=== PATIENT | female | born 1975 | race Caucasian/White ===

== ENCOUNTER 2016-08-28 09:20 | Outpatient (CLI) | payer OTHER ==
[~2016-08-28] VITALS: Ht 172.7 cm; Wt 75.0 kg
[~2016-08-28 09:20] MED LIST: ALPR0.5T7 PO; AMOX500C2 PO; CYCL10TA9 PO; FLUO20CA25 PO; HYDR1TAB PO; HYDR1TAB66 PO; LEVO175T2 PO; LVT.025T PO; METO-270 PO; METR500T PO; NAPR-243 PO; NAPR220C11 PO; PROP20TA5; SULF1TAB38 PO; TEMA30CA PO
[2016-08-28] MEDS ORDERED: METO-270 PO (09:40)
[2016-08-28] MEDS ORDERED: TRAM50TA2 PO (09:44)
[2016-08-28] MEDS ORDERED: CYAN250014 PO (09:44)
[2016-08-28] MEDS ORDERED: CRAN500C5 PO (09:44)
[2016-08-28] MEDS ORDERED: CHOL2000 PO (09:44)
[2016-08-28] MEDS ORDERED: OMEP40CA36 PO (09:44)
[2016-08-28] MEDS ORDERED: ASCO100083 PO (09:44)
[2016-08-28] MEDS ORDERED: RANI150T15 PO (09:44)
[2016-08-28 09:49] VITALS: BP 111/75
[2016-08-28 10:21] LABS: BASOPHILS # (AUTO) 0.1 10^3/uL (0.0-0.1); BASOPHILS % (AUTO) 1 % (0-10); EOSINOPHILS # (AUTO) 0.1 10^3/uL (0.0-0.3); EOSINOPHILS % (AUTO) 1 % (0-10); LYMPHOCYTES # (AUTO) 2.2 X 10^3 (1.0-4.0); LYMPHOCYTES % (AUTO) 23 % (12-44); MEAN CORPUSCULAR HEMOGLOBIN 33 PG (25-34); MEAN CORPUSCULAR HGB CONC 33 G/DL (32-36); MEAN CORPUSCULAR VOLUME 98 FL (80-99); MEAN PLATELET VOLUME 11.3 FL (7.4-10.4); MONOCYTES # (AUTO) 0.7 X 10^3 (0.0-1.0); MONOCYTES % (AUTO) 7 % (0-12); NEUTROPHILS # (AUTO) 6.5 X 10^3 (1.8-7.8); NEUTROPHILS % (AUTO) 68 % (42-75); PLATELET COUNT 282 10^3/uL (130-400); RED BLOOD COUNT 4.39 10^6/uL (4.35-5.85); RED CELL DISTRIBUTION WIDTH 11.6 % (10.0-14.5); WHITE BLOOD COUNT 9.5 10^3/uL (4.3-11.0)
== END 2016-08-28 13:09 | disposition home or self-care (01) ==
LOC: PREOP 09:20
PROVIDERS: ATTEND Obstetrics & Gynecology
DX: Z01.812 Encounter for preprocedural laboratory examination (principal); Z11.2 Encounter for screening for other bacterial diseases; R10.2 Pelvic and perineal pain; N93.8 Other specified abnormal uterine and vaginal bleeding; R19.09 Other intra-abdominal and pelvic swelling, mass and lump; N80.0 Endometriosis of uterus; D64.9 Anemia, unspecified
CPT/HCPCS: 36415; 85025; 86850; 86900; 86901; 87081

== ENCOUNTER 2016-08-31 10:51 | Day surgery (SDC) | payer OTHER ==
[~2016-08-31] VITALS: Ht 172.7 cm; Wt 75.0 kg
[~2016-08-31 10:51] MED LIST changes: +ASCO100083 PO; +CHOL2000 PO; +CRAN500C5 PO; +CYAN250014 PO; +OMEP40CA36 PO; +RANI150T15 PO; +TRAM50TA2 PO
[2016-08-31] MEDS ORDERED: ceFAZolin 1,000 MG (ANCEF) VIAL ONE (11:34)
[2016-08-31] MEDS ORDERED: NS (IVPB) 50 ML ONE (11:35)
[2016-08-31] MEDS ORDERED: LACTATED RINGERS 1,000 ML IV PRN (11:51)
[2016-08-31] MEDS ORDERED: FAMOTIDINE 20MG/2ML IV (PEPCID) IV ONE (12:00)
[2016-08-31] MEDS ORDERED: ceFAZolin 1 GM/NS 50 ML IVPB IV ONE ×2 (12:00)
[2016-08-31] MEDS ORDERED: BUP/EPI 0.25% 1:200,000 (MARCAINE) 30 ML VIAL ONE (13:33)
--- NOTE | 2016-08-31 13:48 | Progress Note-Pre Operative ---
Pre-Operative Progress Note H&P Reviewed The H&P was reviewed, patient examined and no changes noted. Date Seen by Provider: Aug 31, 2016 Time Seen by Provider: 13:48 Date H&P Reviewed: Aug 31, 2016 Time H&P Reviewed: 13:48 Pre-Operative Diagnosis: cchronic pelvic pain/dysfunctional uterine bleeding/ menorrhagia/endometrios HEENA RINCON MD Aug 31, 2016 1:48 pm
--- NOTE | 2016-08-31 13:50 | Progress Note-Post Operative ---
Post-Operative Progess Note Surgeon (s)/High School Chemistry Teacher (s) Date Seen by Provider: Aug 31, 2016 Time Seen by Provider: 15:14 Surgeon HEENA RINCON MD [employer] Chemistry Teacher: RN Pre-Operative Diagnosis cchronic pelvic pain/dysfunctional uterine bleeding/menorrhagia/endometrios Post-Operative Diagnosis same as preop with pathology pending Procedure & Operative Findings Date of Procedure 08/31/16 Procedure Performed/Findings consistent with preop diagnosis with recurrent endometriosis Anesthesia Type Gen. Estimated Blood Loss Estimated blood loss (mL): less than 50 cc Specimens/Packing Specimens Removed uterus fallopian tubes right ovary Packing: none HEENA RINCON MD Aug 31, 2016 1:50 pm
[2016-08-31] MEDS ORDERED: D5 LR IV SOLUTION 1,000 ML IV SCH (13:51)
[2016-08-31] MEDS ORDERED: MIDAZOLAM 2 MG/2 ML (VERSED) VIAL ONE (13:53)
[2016-08-31] MEDS ORDERED: fentaNYL INJECTION 100 MCG/2 ML AMP ONE (13:53)
[2016-08-31] MEDS ORDERED: WATER (STERILE) FOR INJ 10 ML BTL INJ ONE (14:00)
[2016-08-31] MEDS ORDERED: HYDROcodone/APAP 10 MG/325 MG (LORTAB) TAB PO PRN (14:00)
[2016-08-31] MEDS ORDERED: PROMETHAZINE INJ 25 MG/ML (PHENERGAN) AMP IM PRN (14:00)
[2016-08-31] MEDS ORDERED: PATIENT MAY USE OWN MEDS, ALL MC SCH (14:00)
[2016-08-31] MEDS ORDERED: MEPERIDINE (DEMEROL) INJ 100 MG/ML IM PRN (14:00)
[2016-08-31] MEDS ORDERED: ESTROGENS CONJ IV 25 MG/5 ML (PREMARIN) VIAL IVP ONE (14:00)
[2016-08-31] MEDS ORDERED: LIDOCAINE PF 2% 5 ML (XYLOCAINE) VIAL ONE (15:00)
[2016-08-31] MEDS ORDERED: proPOfol 200 MG/20 ML (DIPRIVAN) VIAL IV ONE (15:00)
[2016-08-31] MEDS ORDERED: GLYCOPYRROLATE 0.2 MG/ML (ROBINUL) 2 ML VIAL ONE (15:00)
[2016-08-31] MEDS ORDERED: NEOSTIGMINE (BLOXIVERZ ) 1 MG/1ML 10 ML VIAL ONE (15:00)
[2016-08-31] MEDS ORDERED: DEXAMETHASONE PF 10 MG/ML (DECADRON) VIAL ONE (15:00)
[2016-08-31] MEDS ORDERED: ONDANSETRON 4 MG/2 ML (SDV) Z0FRAN ONE ×2 (15:00→16:35)
[2016-08-31] MEDS ORDERED: KETOROLAC 30 MG/ML VIAL ONE (15:00)
[2016-08-31] MEDS ORDERED: LACTATED RINGERS 2,000 ML IV ONE (15:00)
[2016-08-31] MEDS ORDERED: ROCURONIUM 50 MG/5 ML (ZEMURON) VIAL IV ONE (15:01)
[2016-08-31] MEDS ORDERED: SEVOFLURANE (ULTANE) 15 ML INHAL SOLN ONE ×4 (15:01)
[2016-08-31] MEDS: morphine INJ 10 MG/ML 1ML (SYR OR VIAL) IVP PRN ×2 (15:28→15:33)
[2016-08-31] MEDS ORDERED: KETOROLAC 30 MG/ML VIAL IVP ONE (15:30)
[2016-08-31] MEDS ORDERED: ONDANSETRON 4 MG/2 ML (SDV) Z0FRAN IVP PRN (15:30)
[2016-08-31] MEDS: fentaNYL INJECTION 100 MCG/2 ML AMP IVP PRN ×2 (15:46→15:50)
[2016-08-31 16:30] VITALS: BP 109/69
[2016-08-31] MEDS: ONDANSETRON 4 MG/2 ML (SDV) Z0FRAN IVP PRN ×2 (16:45→22:06)
[2016-08-31 17:15] VITALS: BP 102/70
[2016-08-31] MEDS ORDERED: LEVO150T6 PO (18:56)
--- NOTE | 2016-08-31 19:51 | OPERATIVE REPORT ---
DATE OF SERVICE: 08/31/2016 SURGEON: Jose Lemon MD PREOPERATIVE DIAGNOSES: Chronic pelvic pain, dysfunctional uterine bleeding, menorrhagia and a history of endometriosis. POSTOPERATIVE DIAGNOSES: Chronic pelvic pain, dysfunctional uterine bleeding, menorrhagia and a history of endometriosis with recurrent endometriosis. OPERATIVE PROCEDURES: Total laparoscopic hysterectomy with bilateral salpingectomy with right oophorectomy. OPERATIVE DESCRIPTION: With the patient in the supine position under satisfactory general anesthesia, she was repositioned in the dorsolithotomy position in the Alex strips and prepped and draped in usual fashion for abdominal and vaginal surgery. A Dawn catheter was placed in the urinary bladder and left to dependent drainage. TopofForm A weighted speculum was placed in the posterior fornix of the vagina. The cervix was exposed and grasped anteriorly with a single-tooth tenaculum. The uterus was sounded to 11 cm with the uterine sound. The cervix was then serially dilated with Rachid dilators to accommodate a RICARDO II manipulator, which was placed using a 30 mm colpotomy ring and an 8 cm x 6 mm uterine probe. Sutures of #1 Vicryl were placed at 3 and 9 o'clock positions of the cervix to affix it to the manipulator. The patient was brought in the low dorsolithotomy position, and the abdomen exposed. A 12 mm incision was made approximately 4 cm superior to the umbilicus. Eight mm incisions were made 9 cm lateral to the umbilicus. All 3 incision sites were infiltrated with 0.25% Marcaine with epinephrine prior to incision. A Veress needle was placed through the supraumbilical incision. Correct placement was confirmed with a water drop test. The abdomen was insufflated with 2.4 liters of carbon dioxide. The Veress needle was removed, and a 12 mm port placed. The laparoscope was introduced and, under direct vision with transillumination of the abdominal wall, 8 mm ports were placed in the lateral incisions. The patient was placed in Trendelenburg, allowing the bowel to spill up out of the pelvis. The instrument manipulator was positioned and using a vessel sealer on the right and a bipolar fenestrated grasper on the left, the pelvis was first examined. Both fallopian tubes were interrupted, consistent with remote tubal sterilization. There were endometriosis implants in both ovarian fossae and on the right ovary. The right fallopian tube was quite torturous and somewhat fibrotic. The left ovary showed evidence of recent ovulation, but otherwise normal. The uterus was mottled in appearance, consistent with adenomyosis. There were some adhesions of the anterior lower uterine segment to the peritoneum over the bladder dome. The laparoscope was rotated. The appendix was seen. It was well above the pelvic brim on the right and appeared normal. It was left in situ. Attention was turned to the right salpingo-oophorectomy in conjunction with hysterectomy with plans also for a left salpingectomy. The right fallopian tube was grasped and elevated. The ureter was seen to peristalt medial and posterior to the IP ligament. The IP ligament was clamped, cauterized and divided with the vessel sealer. That was continued step-aldana across the mesovarium across the round ligament, across the broad ligament and down onto the cardinal ligament, allowing for removal of the tube and ovary with the uterus on the right. On the left, the mesosalpinx was clamped, cauterized and divided over to the utero-ovarian pedicle, which was then clamped, cauterized and divided including the round ligament, the broad ligaments and eventually the cardinal ligament, allowing for removal of the left fallopian tube and salvage of the left ovary. The anterior lower uterine segment of the peritoneum was now divided above the scar tissue from the patient's previous C-sections. The bladder was carefully dissected down off of the lower uterine segment, exposing the vaginal wall. Over the colpotomy ring, a colpotomy incision was made at the 12 o'clock position and continued circumferentially until the colpotomy was exposed, allowing the uterus with both fallopian tubes and the right ovary still attached to be extracted through the vagina. The vaginal cuff was then closed using 2 sutures of V-Loc clau sutures starting first on the right angle and continuing just past the midportion of the vaginal cuff and bringing the peritoneum back down over with those sutures as well. The suture on the left was started on the round ligament where it exited the abdominal wall, and then the ovary on the left was secured to the stump of the round ligament with that suture. That suture was continued across the broad ligaments to the left cardinal ligament pedicle and continued to the angle of the vaginal cuff, ensuring inclusion of the uterine vessels. With that placement of those sutures, the vaginal cuff was then closed in its entirety with the balance of the suture, and the peritoneum was brought back down onto the vaginal cuff at the same time. The pelvis was examined for hemostasis, which was complete. There were some endometriosis implants that had been touched with electrocautery prior to closing the vaginal cuff. These were in both ovarian fossae, in the cul-de-sac and on the posterior lower uterine segment peritoneum that was retained. With no further pathology and no bleeding, the procedure was terminated. The operative instruments were removed under direct vision. No bleeding was noted. The abdomen was evacuated of insufflating gas. The patient was brought out of Trendelenburg. The skin incisions were closed with pat. The fascia at the supraumbilical incision was first closed with a figure-of- eight suture of 2-0 Vicryl. Sponge and needle counts were correct. Estimated blood loss was less than 50 mL. The patient tolerated the procedure well, was uneventfully awakened from general anesthesia and transferred to the recovery room in stable condition. Job ID: [id number] DocumentID: [id number] Dictated Date: 08/31/2016 15:10:13 Warehouse Delivery Driver Date: 08/31/2016 19:51:17 Dictated By: JOSE LEMON MD [facility]
[2016-08-31] MEDS ORDERED: CYCLOBENZAPRINE 10 MG (FLEXERIL) TAB PO SCH (21:00)
[2016-08-31] MEDS: KETOROLAC 30 MG/ML VIAL IVP SCH (21:21)
[2016-08-31 21:25] VITALS: BP 113/71
[2016-09-01 01:20] VITALS: BP 88/52
[2016-09-01] MEDS: KETOROLAC 30 MG/ML VIAL IVP SCH ×3 (04:14→08:39)
[2016-09-01] MEDS: ONDANSETRON 4 MG/2 ML (SDV) Z0FRAN IVP PRN (05:04)
[2016-09-01 05:10] VITALS: BP 102/61
[2016-09-01] MEDS ORDERED: LEVOTHYROXINE 150 MCG (LEVOTHROID) TAB PO SCH (06:30)
[2016-09-01] MEDS ORDERED: PANTOPRAZOLE 40 MG (PROTONIX) TAB PO SCH (07:00)
--- NOTE | 2016-09-01 07:32 | Progress Note-Standard ---
Standard Progress Note Progress Notes/Assess & Plan Date Seen by Provider: Sep 01, 2016 Time Seen by Provider: 07:30 Progress/Assessment & Plan this patient without complaint. She is ambulating, voiding, tolerating fairly well, has good pain control, denies chest pain, denies shortness breath, denies nausea vomiting, denies headache, and is requesting discharge home Vital Signs Date Time Temp Pulse Resp B/P (MAP) Pulse Ox O2 Delivery O2 Flow Rate FiO2 09/01/16 05:10 97.5 74 18 102/61 95 09/01/16 01:20 96.9 86 18 88/52 94 08/31/16 21:25 95.9 84 18 113/71 99 08/31/16 17:15 97.2 83 18 102/70 96 08/31/16 16:30 97.0 79 20 109/69 96 I & O 09/01/16 07:00 Intake Total 3250 ml Output Total 2063 ml Balance 1187 ml vital signs are stable. Patient is afebrile. Abdomen is benign. Bowel sounds present in all 4 quadrants. Extremities show no clubbing cyanosis. There is no Homans sign. Pelvic exam is deferred Assessment and plan postoperative day number 1 status post total laparoscopic hysterectomy with bilateral salpingectomy and right oophorectomy. Patient is doing well will be discharged home with follow-up in clinic Final Diagnosis DUB/chronic pelvic pain/menorrhagia/endometriosis HEENA RINCON MD Sep 01, 2016 7:32 am
[2016-09-01] MEDS ORDERED: DOCU100C37 PO (07:33)
[2016-09-01] MEDS ORDERED: IBUP-1780 PO (07:33)
[2016-09-01] MEDS ORDERED: HYDR-3820 PO (07:33)
--- NOTE | 2016-09-01 07:36 | Discharge Instructions ---
Discharge Instructions Discharge Medications New, Converted or Re-Newed RX: RX on Chart Patient Instructions Patient Instructions: as directed Return to The Hospital For: as directed Activity & Diet Discharge Diet: No Restrictions Activity as Tolerated: No Orders-Post D/C & Referrals Follow Up Appt: return to clinic on Saturday, September 05, 2016 for staple removal Call to make follow up appt. for patient in 4 weeks. Activity: Rest for 24 hours, than as tolerated. Wound Care: May remove Band-Aid tomorrow. Replace as desired. Keep incisions clean and dry. Wash daily with soap and water. Diet: As tolerated-Clear Liquids only if nauseated. Tomorrow, may shower or tub bathe as desired. No driving for 24 hours, no alcoholic beverages for 24 hours, and nothing per vagina (no tampons, douching, or intercourse) for 8 weeks. Patient to return to the clinic as soon as possible for: Temperature greater than 101F, Severe Pain, Foul discharge from incision or vagina, Excessive Bleeding (more than a period). HEENA RINCON MD Sep 01, 2016 7:36 am
[2016-09-01] MEDS: FAMOTIDINE 20 MG (PEPCID) TABLET PO SCH ×2 (08:38→09:01)
[2016-09-01] MEDS ORDERED: FLUoxetine HCL 20 MG (PROzac) CAP PO SCH (09:00)
[2016-09-01] MEDS ORDERED: DOCUSATE SODIUM 100 MG (COLACE) CAP PO SCH (09:00)
[2016-09-01 09:06] VITALS: BP 96/55
[2016-09-01] MEDS ORDERED: IBUPROFEN 800 MG (MOTRIN) TAB PO ONE (11:39)
[2016-09-01] MEDS ORDERED: IBUPROFEN 800 MG (MOTRIN) TAB PO SCH (18:00)
--- NOTE | 2016-09-07 05:34 | OPERATIVE REPORT ---
DATE OF SERVICE: 08/31/2016 ADDENDUM PREOPERATIVE DIAGNOSIS: Right nipple soft tissue pedunculated tumor at the edge of the areola. POSTOPERATIVE DIAGNOSIS: Right nipple soft tissue pedunculated tumor at the edge of the areola with pathology pending. OPERATIVE PROCEDURE: Excision of right nipple pedunculated soft tissue mass. OPERATIVE INDICATION: The patient requested removal of this mass. Prior to proceeding to the operating room, she had received no drugs. She had noticed this for quite some time and had intended to have it removed, however, with her other issues, it had dropped from her mind. She did have the presence of mind to request that this be removed in the operating room while under the general anesthesia if possible. She gave me verbal consent to proceed with that in the operating room and I agreed to do so. Now in the operating room, with the patient in the supine position after satisfactory general anesthesia and prepped for abdominal and vaginal surgery before proceeding from that point. The right nipple was prepped with Betadine swabs. The pedunculated mass of approximately 4 mm to 6 mm in diameter was grasped and elevated with the forcep and then excised sharply with Metzenbaum scissors at its attachments to the skin. The site was observed for hemostasis. There was minimal to no bleeding whatsoever from the spot. It was left as is until after the primary procedure was completed with intent to reexamine that area and if hemostatic, then apply Band Aid. The patient was then prepped and draped in the usual fashion for abdominal and vaginal surgery and that dictation has been completed and signed already. On completion of the primary operative procedures, the patient was then draped. The right nipple area was examined for hemostasis which was complete. A Band Aid was applied prior to the patient leaving the operating room. Sponge and needle counts were correct for that portion of the procedure. Estimated blood loss was 0. The patient tolerated that procedure well. Job ID: [id number] DocumentID: [id number] Dictated Date: 09/06/2016 21:34:07 Tetryl Wringer Operator Date: 09/07/2016 02:43:34 Dictated By: HEENA RINCON MD
== END 2016-09-01 11:51 | disposition home or self-care (01) ==
LOC: SDC 10:51 → WS 16:22 → SDC 09-01 11:51
PROVIDERS: ATTEND Obstetrics & Gynecology
DX: N80.0 Endometriosis of uterus (principal); N80.1 Endometriosis of ovary; N93.8 Other specified abnormal uterine and vaginal bleeding; N92.0 Excessive and frequent menstruation with regular cycle; D24.1 Benign neoplasm of right breast; N83.291 Other ovarian cyst, right side; N83.01 Follicular cyst of right ovary; N70.91 Salpingitis, unspecified; N83.8 Other noninflammatory disorders of ovary, fallopian tube and broad ligament; E03.9 Hypothyroidism, unspecified; F32.9 Major depressive disorder, single episode, unspecified; Z79.899 Other long term (current) drug therapy
CPT/HCPCS: 84703; 88304; 88307; 94664; 96361; 96372; 96375; 96376

== ENCOUNTER → 2016-12-19 | Outpatient (CLI) | payer OTHER ==
[~2016-12-19] MED LIST changes: +DOCU100C37 PO; +HYDR-3820 PO; +IBUP-1780 PO; +LEVO150T6 PO; -METO-270 PO; +METO-387 PO
--- NOTE | 2016-12-19 17:30 | Diagnostic Imaging Report ---
Bilateral screening mammogram 2D views with tomosynthesis. The current study was also evaluated with a Computer Aided Detection (CAD) system. INDICATION: Screening. No current complaints stated on the questionnaire. COMPARISON: None. FINDINGS: The breasts are composed of heterogeneously dense parenchyma which may decrease mammographic sensitivity. There is a focal asymmetry seen in the posterior central aspect of the right breast measuring 3 cm which is favored to be related to asymmetric parenchymal tissue. The left breast demonstrates no mass, architectural distortion, or suspicious cluster of calcification. IMPRESSION: Focal compression views and ultrasound evaluation for posterior central right breast focal asymmetry is recommended. ACR BI-RADS Category 0: Incomplete. (Needs additional imaging evaluation). Result letter will be mailed to the patient. Note: At least 10% of breast cancer is not imaged by mammography. Dictated by: Dictated on workstation # [id number]
== END ==
LOC: RAD 14:27
PROVIDERS: ATTEND Obstetrics & Gynecology
DX: Z12.31 Encounter for screening mammogram for malignant neoplasm of breast; N64.89 Other specified disorders of breast
CPT/HCPCS: 77067

== ENCOUNTER → 2017-01-07 | Outpatient (CLI) | payer OTHER ==
[~2017-01-07] MED LIST changes: +METO-270 PO; -METO-387 PO
--- NOTE | 2017-01-07 19:02 | Diagnostic Imaging Report ---
Right breast diagnostic mammogram. The current study was also evaluated with a Computer Aided Detection (CAD) system. INDICATION: Focal asymmetry in the far posterior outer aspects of the right breast. Tomography evaluation is also performed. FINDINGS: A 3 cm lobulated circumscribed mass is seen in the outer aspect of the right breast posteriorly. It has appearance in favor of benign etiology. IMPRESSION: Confirmed 3 cm mass along the posterior slightly lateral aspect of the right breast. Ultrasound evaluation pending. ACR BI-RADS Category 0: Incomplete. (Needs additional imaging evaluation). Result letter will be mailed to the patient. Note: At least 10% of breast cancer is not imaged by mammography. Dictated by: Dictated on workstation # [id number]
--- NOTE | 2017-01-07 19:05 | Diagnostic Imaging Report ---
EXAMINATION: Right breast ultrasound. INDICATION: Mass seen in the outer aspect of the right breast. FINDINGS: The right breast outer aspect is scanned with a simple cyst measuring 3.4 x 1.4 x 2.8 cm seen at 10 o'clock zone, 7 cm from the nipple. This correlates with the mammographic abnormality with no suspicious mass seen. IMPRESSION: There is a simple cyst explaining the mass seen on mammography with no suspicious lesion identified. Annual screening mammogram is recommended. ACR BI-RADS Category 2: Benign findings. Dictated by: Dictated on workstation # [id number]
== END ==
LOC: RAD 14:17
PROVIDERS: ATTEND Obstetrics & Gynecology
DX: N60.01 Solitary cyst of right breast (principal)

== ENCOUNTER → 2017-03-14 | Outpatient (CLI) | payer OTHER ==
[~2017-03-14] MED LIST changes: -METO-270 PO; +METO-387 PO
--- NOTE | 2017-03-14 18:21 | Diagnostic Imaging Report ---
Right breast ultrasound. INDICATION: Right breast lump. FINDINGS: At 10 o'clock zone 7 cm from the nipple, there is a 3 x 1.5 x 3 cm simple cyst seen. This matches palpable area. It is compared to 01/07/2017 exam without significant change. Prior measurements were 3.4 x 1.4 x 2.8 cm. IMPRESSION: The palpable lesion is compatible with a simple cyst measuring 3 cm at 10 o'clock zone, 7 cm from the nipple without significant change. ACR BI-RADS Category 2: Benign findings. Dictated by: Dictated on workstation # [id number]
== END ==
LOC: RAD 14:08
PROVIDERS: ATTEND Obstetrics & Gynecology
DX: N60.01 Solitary cyst of right breast (principal)

== ENCOUNTER → 2017-06-28 | Outpatient (CLI) | payer OTHER ==
--- NOTE | 2017-06-28 08:45 | Diagnostic Imaging Report ---
CLINICAL INDICATION: Patient with elevated LFTs, right upper quadrant pain. Patient has history of cholecystectomy. EXAMINATION: Abdominal ultrasound. COMPARISON: Right upper quadrant ultrasound dated 08/11/2012. FINDINGS: The pancreas is partially obscured and not completely evaluated. There is diffuse hyperechogenicity seen throughout the liver. The liver surface is smooth. The liver measures 14.9 cm in craniocaudal dimension. There is no liver mass/lesion seen. There is no intrahepatic or extrahepatic ductal dilation. The common bile duct measures 4.4 mm. The main portal vein demonstrates hepatopetal flow. The gallbladder is surgically absent. The spleen is normal size, shape and echogenicity and measures 10.0 cm in greatest dimension. Limited visualization of the aorta with no gross abnormality. IVC is grossly unremarkable. The right and left kidneys have normal cortical thickness, echogenicity, size, and shape with no hydronephrosis or mass. The right and left kidneys measure 9.6 cm and 10.6 cm, respectively. There is no abdominal ascites. IMPRESSION: 1: There is no evidence of acute abnormality on this abdominal ultrasound exam. 2: There is diffuse hyperechogenicity seen throughout the liver which may be related to diffuse fatty infiltration and/or chronic hepatocellular disease. 3: Gallbladder is surgically resected. 4: Incomplete visualization of the pancreas. If there is clinical concern for pancreatic abnormality, serology tests may better evaluate. Dictated by: Dictated on workstation # [id number]
== END ==
LOC: RAD 07:30
PROVIDERS: ATTEND Nurse Practitioner Family
DX: R10.11 Right upper quadrant pain (principal); Z90.49 Acquired absence of other specified parts of digestive tract
CPT/HCPCS: 76700

== ENCOUNTER → 2019-01-07 | Outpatient (CLI) | payer OTHER ==
[~2019-01-07] MED LIST changes: +RANI-613 PO; -RANI150T15 PO
--- NOTE | 2019-01-07 16:58 | Diagnostic Imaging Report ---
CLINICAL INDICATION: Patient with chronic low back pain. EXAM: X-ray of the lumbar spine, five views. COMPARISON: None. FINDINGS: There is no acute lumbar spine fracture or dislocation. The vertebral body heights and intervertebral disc heights are well-maintained. There are minimal sized anterior spurs involving the L4 and L5 vertebrae anteriorly. Sacroiliac joints are unremarkable. Surgical clips are seen overlying the right upper quadrant which could be related to cholecystectomy changes. IMPRESSION: 1: Minimal sized lumbar spine degenerative spurs involving the lower lumbar spine. 2: Otherwise unremarkable X-rays of the lumbar spine. Dictated by: Dictated on workstation # [id number]
--- NOTE | 2019-01-07 17:11 | Diagnostic Imaging Report ---
CLINICAL INDICATION: Patient with chronic low back pain. EXAM: X-ray of the thoracic spine, three views. COMPARISON: None. FINDINGS: Of note, the upper thoracic spine is obscured on lateral view due to overlapping anatomical structures. There is no acute fracture or dislocation. The vertebral body heights and intervertebral disk heights are well maintained. There is no significant bony abnormality. Surgical clips are seen overlying the right upper quadrant which could be related to cholecystectomy changes. IMPRESSION: 1. Unremarkable x-rays of the thoracic spine. Dictated by: Dictated on workstation # [id number]
--- NOTE | 2019-01-08 08:38 | Diagnostic Imaging Report ---
INDICATION: Routine screening. COMPARISON: 12/19/2016. TECHNIQUE: 2D and 3D bilateral screening mammography was performed with CAD. FINDINGS: Both breasts remain heterogeneously dense, limiting the sensitivity of mammography. There are circumscribed densities in both breasts, consistent with cysts. The previously noted dominant cyst in the right breast has decreased in size. There is a probable small cyst in the inferior and slightly outer posterior left breast. No spiculated mass or malignant appearing microcalcifications are seen. The axillae are unremarkable. IMPRESSION: No mammographic features suspicious for malignancy are identified. ACR BI-RADS Category 2: Benign findings. Result letter will be mailed to the patient. Note: At least 10% of breast cancer is not imaged by mammography. Dictated by: Dictated on workstation # [id number]
== END ==
LOC: RAD 15:59
PROVIDERS: ATTEND Nurse Practitioner Family
DX: Z12.31 Encounter for screening mammogram for malignant neoplasm of breast (principal); G89.29 Other chronic pain; M54.5 Low back pain; M54.6 Pain in thoracic spine
CPT/HCPCS: 72072; 72110; 77067

== ENCOUNTER → 2019-02-11 | Outpatient (CLI) | payer OTHER ==
--- NOTE | 2019-02-11 16:17 | Diagnostic Imaging Report ---
PROCEDURE: MRI lumbar spine. TECHNIQUE: Multiplanar, multisequence MRI of the lumbar spine was performed without contrast. INDICATION: Back pain. FINDINGS: The alignment of the lumbar spine is normal. The vertebral body heights are well-maintained. There is no spondylolysis or spondylolisthesis. No fractures are identified. There are no marrow signal intensity abnormalities. Conus medullaris is seen at L1 and is normal in appearance. T12-L1 disc is unremarkable. At L1-L2 the disc is normal in height, signal intensity and morphology. There is some mild facet disease. There is no spinal or neural foraminal encroachment. At L2-L3 there is mild facet disease, however, no significant spinal or neural foraminal encroachment. At L3-L4 there is very minimal annular bulging as well as some facet disease. There is minimal central spinal stenosis. At L4-L5 there is loss of disc height, annular bulging, facet disease and thickening of the ligament flavum. There is mild central spinal stenosis and slight encroachment upon the lateral recess bilaterally. There is minimal bilateral neural foraminal encroachment. At L5-S1 there is some minimal annular bulging and mild facet disease. The aorta is nonaneurysmal. The visualized kidneys are unremarkable. IMPRESSION: Mild lumbar spondylosis and degenerative disc disease as described. Dictated by: Dictated on workstation # [id number]
== END ==
LOC: RAD 15:25
PROVIDERS: ATTEND Nurse Practitioner Family
DX: M51.17 Intervertebral disc disorders with radiculopathy, lumbosacral region (principal); M48.061 Spinal stenosis, lumbar region without neurogenic claudication; M47.26 Other spondylosis with radiculopathy, lumbar region
CPT/HCPCS: 72148

== ENCOUNTER 2019-05-31 04:19 | Emergency (ER) | payer OTHER ==
[~2019-05-31] VITALS: Ht 172 cm; Wt 170.0 kg
[~2019-05-31 04:19] MED LIST changes: +ACHYD1T PO; -FLUO20CA25 PO; +FLUO20CA46 PO; -HYDR-3820 PO; -METO-387 PO; +MTP25TSR PO; +OMEP40CA27 PO; -OMEP40CA36 PO; -TRAM50TA2 PO; +TRM50T PO
[2019-05-31] MEDS ORDERED: fentaNYL INJECTION 100 MCG/2 ML AMP IVP STA (05:38)
[2019-05-31] MEDS ORDERED: LACTATED RINGERS 1,000 ML IV STA (05:38)
[2019-05-31] MEDS ORDERED: OSELTAMIVIR 75 MG (TAMIFLU) CAPSULE PO ONE (05:45)
--- NOTE | 2019-05-31 05:45 | ED General ---
General Chief Complaint: General Problems/Pain Stated Complaint: FLU A, ABD PAIN Nursing Triage Note: PT PRESENTS TO THE ED C/O RUQ AND RLQ ABD. PAIN THAT ONSET AROUND [employer]. PT STATES SHE WAS DX WITH FLU A YESTERDAY AT [facility], INITIALLY REPORTING ONLY SORE THROAT. TODAY PRESENTS TO THE ED C/O INTERMITTENT ABD. PAIN, DENIES NVD. Nursing Sepsis Screen: Possible Severe Sepsis Risk Source of Information: Patient Exam Limitations: No Limitations (TYLER FLETCHER MD) History of Present Illness Date Seen by Provider: May 31, 2019 Time Seen by Provider: 05:32 Initial Comments Here with report of right upper quadrant abdominal pain as well as recent di agnosis of influenza. Started with fever yesterday morning and cough. Also has runny nose and sore throat. Seen at the walk-in clinic at [facility] yesterday. She was given prescription for cough medicine but not Tamiflu. Patient is unsure why not. She states that she was diagnosed with influenza a. She had rapid strep screen done and that was negative. She tried Tylenol and ibuprofen this morning when she woke up at 2 AM with significant right upper quadrant abdominal pain. This did not stop the pain in fact it is getting worse now. She's had previous cholecystectomy but states that it feels like a gallbladder attack. Denies current nausea or vomiting. Denies diarrhea or dysuria. She did not take her prescribed hydrocodone because she has to take that with food and she could not eat at the time. Timing/Duration: 4-6 Hours (abdominal pain), 24 Hours (flu symptoms) Severity: Moderate Associated Systoms: No Chest Pain; Cough, Fever/Chills, Nausea/Vomiting; No Shortness of Air, No Weakness (TYLER FLETCHER MD) Allergies and Home Medications Allergies Coded Allergies: No Known Drug Allergies (Unverified , 08/28/16) Home Medications Alprazolam 0.5 Mg Tablet, 1 TAB PO TID, (Reported) Ascorbic Acid 1,000 Mg Tab.chew, 1,000 MG PO BID, (Reported) Benzonatate 100 Mg Capsule, 100 MG PO Q8H PRN for COUGH Prescribed by: ZULEYMA MORFIN on 05/31/19 0651 Cholecalciferol (Vitamin D3) 2,000 Unit Capsule, 2,000 UNIT PO DAILY, (Reported) Cranberry Extract 500 Mg Capsule, 1,000 MG PO DAILY, (Reported) Cyanocobalamin (Vitamin B-12) 2,500 Mcg Tab.chew, 2,500 MCG PO DAILY, (Reported) Cyclobenzaprine HCl 10 Mg Tablet, 1 TAB PO DAILY, (Reported) Docusate Sodium 100 Mg Capsule, 100 MG PO BID Prescribed by: HEENA HOFF on 09/01/16732 Fluoxetine HCl 20 Mg Capsule, 1 CAP PO DAILY, (Reported) Hydrocodone Bit/Acetaminophen 1 Each Tablet, 5-500 MG PO Q4H PRN, (Reported) PRN PAIN Hydrocodone/Acetaminophen 1 Each Tablet, 1-2 EA PO Q4H PRN for PAIN-MODERATE Prescribed by: HEENA HOFF on 09/01/16732 Ibuprofen 800 Mg Tablet, 800 MG PO Q6HR Prescribed by: HEENA HOFF on 09/01/16732 Levothyroxine Sodium 150 Mcg Tablet, 150 MCG PO DAILY, (Reported) Metoprolol Succinate 25 Mg Tab.er.24h, 12.5 MG PO EVERY OTHER DAY, (Reported) Metoprolol Succinate 25 Mg Tab.er.24h, 25 MG PO EVERY OTHER DAY, (Reported) Omeprazole 40 Mg Capsule.dr, 40 MG PO DAILY, (Reported) Ondansetron 4 Mg Tab.rapdis, 4 MG PO Q6H PRN for NAUSEA/VOMITING Prescribed by: ZULEYMA MORFIN on 05/31/19650 Oseltamivir Phosphate 75 Mg Capsule, 75 MG PO BID Prescribed by: ZULEYMA MORFIN on 05/31/19650 Ranitidine HCl 150 Mg Tablet, 150 MG PO DAILY, (Reported) Temazepam 30 Mg Capsule, 1 CAP PO UD, (Reported) Tramadol HCl 50 Mg Tablet, 50 MG PO BID PRN for PAIN-MILD TO MODERATE, (Reported) Patient Home Medication List Home Medication List Reviewed: Yes (TYLER FLETCHER MD) Review of Systems Review of Systems Constitutional: see HPI EENTM: see HPI Respiratory: see HPI; No short of breath, No wheezing Cardiovascular: no symptoms reported Gastrointestinal: see HPI, abdominal pain (RUQ); No constipation, No diarrhea Genitourinary: no symptoms reported : No Musculoskeletal: no symptoms reported (TYLER FLETCHER MD) All Other Systems Reviewed Negative Unless Noted: Yes (TYLER FLETCHER MD) Past Kwblfkx-Eetqav-Eknnem Hx Past Med/Social Hx: Reviewed Nursing Past Med/Soc Hx (TYLER FLETCHER MD) Patient Social History Alcohol Use: Occasionally Uses Alcohol Beverage of Choice: Beer Recreational Drug Use: No Smoking Status: Former Smoker Type Used: Cigarettes Recent Foreign Travel: No Contact w/Someone Who Travel: No Recent Infectious Disease Expo: No Recent Hopitalizations: No Physical Abuse: No Sexual Abuse: No Mistreated: No Fear: No (TYLER FLETCHER MD) Immunizations Up To Date PED Vaccines UTD: Yes Date of Pneumonia Vaccine: July 30, 2005 Date of Influenza Vaccine: Jan 09, 2016 (TYLER FLETCHER MD) Seasonal Allergies Seasonal Allergies: Yes (TYLER FLETCHER MD) Past Medical History Surgeries: Yes (C-SECT.X2) Section, Gallbladder, Hysterectomy, Thyroidectomy Respiratory: No Cardiac: Yes Hypertension, Palpitations Neurological: Yes Headaches /Migraines : No Reproductive Disorders: Yes (CPP, DUB, ENDOMETRIOSIS) Female Reproductive Disorders: Menstrual Problems, Endometriosis, Ovarian Cyst Sexually Transmitted Disease: No HIV/AIDS: No Gastrointestinal: Yes Gastroesophageal Reflux, Chronic Diarrhea, Irritable Bowel Musculoskeletal: Yes Arthritis, Chronic Back Pain Endocrine: Yes Hypothyroidsim Loss of Vision: Bilateral Cancer: Yes Skin Psychosocial: Yes Anxiety, Depression Integumentary: No Blood Disorders: No Adverse Reaction/Blood Tranf: No (TYLER FLETCHER MD) Family Medical History Reviewed Nursing Family Hx (TYLER FLETCHER MD) Physical Exam Vital Signs Vital Signs - First Documented 05/31/19 05:10 Temp 36.6 Pulse 91 Resp 20 B/P (MAP) 131/73 (92) Pulse Ox 100 O2 Delivery Room Air (MORFIN,ZULEYMA L DO) Vital Signs Capillary Refill : Less Than 3 Seconds (TYLER FLETCHER MD) Height, Weight, BMI Height: 5'8.00" Weight: 165lbs. 5.0oz. 74.084234yl; 57.00 BMI Method:Stated General Appearance: WD/WN, Mild Distress HEENT: PERRL/EOMI, TMs Normal, Pharyngeal Erythema Neck: Non Tender, Lymphadenopathy (L), Lymphadenopathy (R) Respiratory: Lungs Clear, Normal Breath Sounds Cardiovascular: Regular Rate, Rhythm, No Murmur Gastrointestinal: Soft; No Distended, No Guarding; Tenderness (right upper quadrant) Back: No CVA Tenderness, No Vertebral Tenderness Extremity: Normal Range of Motion, Non Tender Neurologic/Psychiatric: Alert, Oriented x3, No Motor/Sensory Deficits Skin: Normal Color, Warm/Dry (TYLER FLETCHER MD) Progress/Results/Core Measures Suspected Sepsis Recent Fever Within 48 Hours: Yes Infection Criteria Present: Documented Infection New/Unexplained Altered Menta: No Sepsis Screen: Possible Severe Sepsis Risk SIRS Temperature: Pulse: 91 Respiratory Rate: 20 Blood Pressure 131 /73 Mean: 92 (TYLER FLETCHER MD) Results/Orders Lab Results Laboratory Tests Test 05/31/19 05:46 05/31/19 06:51 Range/Units White Blood Count 5.4 4.3-11.0 10^3/uL Red Blood Count 3.84 L 4.35-5.85 10^6/uL Hemoglobin 11.8 11.5-16.0 G/DL Hematocrit 35 35-52 % Mean Corpuscular Volume 91 80-99 FL Mean Corpuscular Hemoglobin 31 25-34 PG Mean Corpuscular Hemoglobin Concent 34 32-36 G/DL Red Cell Distribution Width 11.7 10.0-14.5 % Platelet Count 209 130-400 10^3/uL Mean Platelet Volume 11.4 H 7.4-10.4 FL Neutrophils (%) (Auto) 83 H 42-75 % Lymphocytes (%) (Auto) 5 L 12-44 % Monocytes (%) (Auto) 11 0-12 % Eosinophils (%) (Auto) 1 0-10 % Basophils (%) (Auto) 0 0-10 % Neutrophils # (Auto) 4.5 1.8-7.8 X 10^3 Lymphocytes # (Auto) 0.3 L 1.0-4.0 X 10^3 Monocytes # (Auto) 0.6 0.0-1.0 X 10^3 Eosinophils # (Auto) 0.0 0.0-0.3 10^3/uL Basophils # (Auto) 0.0 0.0-0.1 10^3/uL Sodium Level 138 135-145 MMOL/L Potassium Level 3.9 3.6-5.0 MMOL/L Chloride Level 110 H 98-107 MMOL/L Carbon Dioxide Level 17 L 21-32 MMOL/L Anion Gap 11 5-14 MMOL/L Blood Urea Nitrogen 12 7-18 MG/DL Creatinine 0.77 0.60-1.30 MG/DL Estimat Glomerular Filtration Rate > 60 BUN/Creatinine Ratio 16 Glucose Level 124 H 70-105 MG/DL Calcium Level 8.1 L 8.5-10.1 MG/DL Corrected Calcium 8.3 L 8.5-10.1 MG/DL Total Bilirubin 0.6 0.1-1.0 MG/DL Aspartate Amino Transf (AST/SGOT) 200 H 5-34 U/L Alanine Aminotransferase (ALT/SGPT) 220 H 0-55 U/L Alkaline Phosphatase 130 40-136 U/L C-Reactive Protein High Sensitivity 2.49 H 0.00-0.50 MG/DL Total Protein 6.6 6.4-8.2 GM/DL Albumin 3.7 3.2-4.5 GM/DL Lipase 12 8-78 U/L Urine Color YELLOW Urine Clarity CLEAR Urine pH 5.5 5-9 Urine Specific [place] 1.025 H 1.016-1.022 Urine Protein NEGATIVE NEGATIVE Urine Glucose (UA) NEGATIVE NEGATIVE Urine Ketones NEGATIVE NEGATIVE Urine Nitrite NEGATIVE NEGATIVE Urine Bilirubin NEGATIVE NEGATIVE Urine Urobilinogen 1.0 < = 1.0 MG/DL Urine Leukocyte Esterase NEGATIVE NEGATIVE Urine RBC (Auto) NEGATIVE NEGATIVE Urine RBC NONE /HPF Urine WBC NONE /HPF Urine Squamous Epithelial Cells 5-10 /HPF Urine Crystals NONE /LPF Urine Bacteria TRACE /HPF Urine Casts NONE /LPF Urine Mucus MODERATE H /LPF Urine Culture Indicated NO (ZULEYMA MORFIN DO) My Orders Orders - ZULEYMA MORFIN DO Ondansetron Injection (Zofran Injectio (05/31/19 07:00) (ZULEYMA MORFIN DO) Medications Given in ED Current Medications Medications Dose Ordered Sig/Walter Route Start Time Stop Time Status Last Admin Dose Admin Ondansetron HCl 4 mg ONCE ONCE IVP 05/31/19 07:00 05/31/19 07:01 DC 05/31/19 06:53 4 MG Oseltamivir Phosphate 75 mg ONCE ONCE PO 05/31/19 05:45 05/31/19 05:46 DC 05/31/19 05:49 75 MG (ZULEYMA MOFRIN DO) Vital Signs/I&O 05/31/19 05:10 Temp 36.6 Pulse 91 Resp 20 B/P (MAP) 131/73 (92) Pulse Ox 100 O2 Delivery Room Air (ZULEYMA MORFIN DO) Vital Signs/I&O Capillary Refill : Less Than 3 Seconds (TYLER FLETCHER MD) Blood Pressure Mean: 92 Progress Note : Progress Note Seen and evaluated. IV, labs, UA, LR 1 L bolus, fentanyl 50 g IV and Tamiflu 75 mg by mouth ordered. Tamiflu initiated based on patient's history and she is only 24 hours into flu symptoms. Monitor patient. (TYLER FLETCHER MD) Departure Impression Primary Impression: Influenza A Disposition: HOME, SELF-CARE Condition: Stable Departure-Patient Inst. Referrals: BHAVIK OGLESBY MD (PCP/Family) Primary Care Physician Patient Instructions: Flu, Adult (DC) Scripts Benzonatate (TESSALON PERLES) 100 Mg Capsule 100 MG PO Q8H PRN for COUGH, #10 CAP Prov: ZULEYMA MORFIN DO 05/31/19 Ondansetron (Ondansetron Odt) 4 Mg Tab.rapdis 4 MG PO Q6H PRN for NAUSEA/VOMITING, #20 TAB Prov: ZULEYMA MORFIN DO 05/31/19 Oseltamivir Phosphate (Oseltamivir Phosphate) 75 Mg Capsule 75 MG PO BID, #9 CAP Prov: ZULEYMA MORFIN DO 05/31/19 TYLER FLETCHER MD May 31, 2019 05:45 ZULEYMA MORFIN DO May 31, 2019 06:51
[2019-05-31 06:23] LABS: BASOPHILS % (AUTO) 0 % (0-10); EOSINOPHILS % (AUTO) 1 % (0-10); HEMATOCRIT 35 % (35-52); HEMOGLOBIN 11.8 G/DL (11.5-16.0); LYMPHOCYTES # (AUTO) 0.3 X 10^3 (1.0-4.0); LYMPHOCYTES % (AUTO) 5 % (12-44); MEAN CORPUSCULAR HEMOGLOBIN 31 PG (25-34); MEAN CORPUSCULAR HGB CONC 34 G/DL (32-36); MEAN CORPUSCULAR VOLUME 91 FL (80-99); MEAN PLATELET VOLUME 11.4 FL (7.4-10.4); MONOCYTES # (AUTO) 0.6 X 10^3 (0.0-1.0); MONOCYTES % (AUTO) 11 % (0-12); NEUTROPHILS # (AUTO) 4.5 X 10^3 (1.8-7.8); NEUTROPHILS % (AUTO) 83 % (42-75); PLATELET COUNT 209 10^3/uL (130-400); RED CELL DISTRIBUTION WIDTH 11.7 % (10.0-14.5); WHITE BLOOD COUNT 5.4 10^3/uL (4.3-11.0)
[2019-05-31 06:36] LABS: ALANINE AMINOTRANSFERASE 220 U/L (0-55); ALBUMIN 3.7 GM/DL (3.2-4.5); ALKALINE PHOSPHATASE 130 U/L (40-136); BILIRUBIN,TOTAL 0.6 MG/DL (0.1-1.0); BUN/CREATININE RATIO 16; CALCIUM 8.1 MG/DL (8.5-10.1); CARBON DIOXIDE 17 MMOL/L (21-32); CHLORIDE 110 MMOL/L (98-107); CREATININE SERUM 0.77 MG/DL (0.60-1.30); GFR ESTIMATED > 60; GLUCOSE 124 MG/DL (70-105); LIPASE 12 U/L (8-78); POTASSIUM 3.9 MMOL/L (3.6-5.0); SODIUM 138 MMOL/L (135-145); TOTAL PROTEIN 6.6 GM/DL (6.4-8.2)
[2019-05-31] MEDS ORDERED: OSEL75CA15 PO (06:51)
[2019-05-31] MEDS ORDERED: BENZ100C18 PO (06:51)
[2019-05-31] MEDS ORDERED: ONDA4TAB11 PO (06:51)
[2019-05-31 06:58] LABS: BILIRUBIN,URINE NEGATIVE (NEGATIVE); CLARITY,URINE CLEAR; COLOR,URINE YELLOW; GLUCOSE, URINE (UA) NEGATIVE (NEGATIVE); KETONES,URINE NEGATIVE (NEGATIVE); LEUKOCYTE ESTERASE ,URINE NEGATIVE (NEGATIVE); NITRITE,URINE NEGATIVE (NEGATIVE); PH,URINE 5.5 (5-9); PROTEIN,URINE NEGATIVE (NEGATIVE)
[2019-05-31] MEDS ORDERED: ONDANSETRON 4 MG/2 ML (SDV) Z0FRAN IVP ONE (07:00)
--- NOTE | 2019-05-31 07:01 | NUR ---
REPORT AND PT CARE TRANSFERRED TO EDY RN
[2019-05-31 07:22] LABS: BACTERIA,URINE TRACE /HPF
[2019-05-31 07:48] LABS: EOSINOPHILS % (MANUAL) 1 %; LYMPHOCYTES % (MANUAL) 7 %; MONOCYTES % (MANUAL) 13 %; NEUTROPHILS % (MANUAL) 79 %; RBC MORPH NORMAL
[2019-05-31 08:14] VITALS: BP 108/48
== END 2019-05-31 08:13 | disposition home or self-care (01) ==
LOC: EDUNIT# 04:19 → ER 04:21
DX: J10.1 Influenza due to other identified influenza virus with other respiratory manifestations (principal); I10 Essential (primary) hypertension; K21.9 Gastro-esophageal reflux disease without esophagitis; E03.9 Hypothyroidism, unspecified; F41.9 Anxiety disorder, unspecified; F32.9 Major depressive disorder, single episode, unspecified; Z85.828 Personal history of other malignant neoplasm of skin; Z87.891 Personal history of nicotine dependence
CPT/HCPCS: 36415; 80053; 81000; 83690; 85007; 85027; 86141; 96361; 96374; 96375

== ENCOUNTER → 2019-10-19 | Outpatient (CLI) | payer OTHER ==
[~2019-10-19] MED LIST changes: +BENZ100C18 PO; +ONDA4TAB11 PO; +OSEL75CA15 PO
--- NOTE | 2019-10-19 15:06 | Diagnostic Imaging Report ---
INDICATION: Fall with injury to left foot. TIME OF EXAM: 02:16 p.m. FINDINGS: The metatarsals are intact. Phalanges appear to be intact. Midfoot and hindfoot are unremarkable. No fractures are seen. IMPRESSION: No acute bony abnormality is detected. Dictated by: Dictated on workstation # [id number]
--- NOTE | 2019-10-19 15:28 | Diagnostic Imaging Report ---
INDICATION: Fall and injury to the left ankle. TIME OF EXAM: 2:20 PM. TECHNIQUE: Three views of the left ankle were obtained. FINDINGS: The alignment is normal. The ankle mortise is well maintained. The talar dome is smooth. No fracture or dislocation is identified. IMPRESSION: No acute bony abnormality is detected. Dictated by: Dictated on workstation # [id number]
== END ==
LOC: RAD 13:44
PROVIDERS: ATTEND Nurse Practitioner Family
DX: S99.922A Unspecified injury of left foot, initial encounter (principal); S99.912A Unspecified injury of left ankle, initial encounter; W19.XXXA Unspecified fall, initial encounter
CPT/HCPCS: 73610; 73630

== ENCOUNTER → 2020-02-29 | Outpatient (CLI) | payer OTHER ==
--- NOTE | 2020-03-01 09:18 | Diagnostic Imaging Report ---
INDICATION: Routine screening. COMPARISON: 01/07/2019 and 12/19/2016. TECHNIQUE: 2D and 3D bilateral screening mammography was performed with CAD. FINDINGS: Both breasts are heterogeneously dense, limiting the sensitivity of mammography. Numerous circumscribed densities are identified in both breasts, consistent with cysts. No spiculated mass or malignant appearing microcalcifications are seen. The axillae are unremarkable. IMPRESSION: No mammographic features suspicious for malignancy are identified. ACR BI-RADS Category 2: Benign findings. Result letter will be mailed to the patient. Note: At least 10% of breast cancer is not imaged by mammography. Dictated by: Dictated on workstation # [id number]
== END ==
LOC: RAD 14:45
DX: Z12.31 Encounter for screening mammogram for malignant neoplasm of breast (principal)
CPT/HCPCS: 77063; 77067

== ENCOUNTER 2020-04-21 09:01 | Emergency (ER) | payer OTHER ==
[~2020-04-21] VITALS: Ht 170 cm; Wt 74.0 kg
--- NOTE | 2020-04-21 09:25 | ED Headache ---
General Stated Complaint: UNK History of Present Illness Date Seen by Provider: Apr 21, 2020 Time Seen by Provider: 09:15 Initial Comments Patient is a 44-year-old female who presents to the emergency department today with a chief complaint of right hand and forearm "numbness". Patient states that she was driving her pet to the center maker hand's office this morning at approximately 830 when she noticed the symptoms. Patient also endorses some bilateral facial numbness numbness and bilateral feet numbness and tingling. Patient states that she has had a headache off and on for the last 2 months or so. She states her headache seems to be worsened with bending forward. 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 She has had headaches off and on and occasionally has to take Imitrex for migraines. Patient denies any recent illnesses such as fevers, chills, con gestion upper respiratory type symptoms. Patient denies any acute nausea, vomiting diarrhea. No complaints. Patient denies any problems with unilateral weakness. She again states that her right hand feels numb and it extends from the elbow to the hand it spares the upper arm on the right. She is right-hand dominant. All other review of systems reviewed and negative except as stated above. Timing/Duration: 1 hour Severity/Quality: moderate Location: global Prior Headaches/Recent Trauma: occasional headaches Modifying Factors: improves with medication Associated Symptoms: numbness in legs/feet; No vision changes Allergies and Home Medications Allergies Coded Allergies: No Known Drug Allergies (Unverified , 08/28/16) Home Medications Alprazolam 0.5 Mg Tablet, 1 TAB PO TID, (Reported) Ascorbic Acid 1,000 Mg Tab.chew, 1,000 MG PO BID, (Reported) Benzonatate 100 Mg Capsule, 100 MG PO Q8H PRN for COUGH Prescribed by: ZULEYMA MORFIN on 05/31/19 0651 Cholecalciferol (Vitamin D3) 2,000 Unit Capsule, 2,000 UNIT PO DAILY, (Reported) Cranberry Extract 500 Mg Capsule, 1,000 MG PO DAILY, (Reported) Cyanocobalamin (Vitamin B-12) 2,500 Mcg Tab.chew, 2,500 MCG PO DAILY, (Reported) Cyclobenzaprine HCl 10 Mg Tablet, 1 TAB PO DAILY, (Reported) Docusate Sodium 100 Mg Capsule, 100 MG PO BID Prescribed by: HEENA HOFF on 09/01/16732 Fluoxetine HCl 20 Mg Capsule, 1 CAP PO DAILY, (Reported) Hydrocodone Bit/Acetaminophen 1 Each Tablet, 5-500 MG PO Q4H PRN, (Reported) PRN PAIN Hydrocodone Bit/Acetaminophen 1 Each Tablet, 1-2 EA PO Q4H PRN for PAIN-MODERATE Prescribed by: HEENA HOFF on 09/01/16732 Ibuprofen 800 Mg Tablet, 800 MG PO Q6HR Prescribed by: HEENA HOFF on 09/01/16732 Levothyroxine Sodium 150 Mcg Tablet, 150 MCG PO DAILY, (Reported) Metoprolol Succinate 25 Mg Tab.er.24h, 12.5 MG PO EVERY OTHER DAY, (Reported) Metoprolol Succinate 25 Mg Tab.er.24h, 25 MG PO EVERY OTHER DAY, (Reported) Omeprazole 40 Mg Capsule.dr, 40 MG PO DAILY, (Reported) Ondansetron 4 Mg Tab.rapdis, 4 MG PO Q6H PRN for NAUSEA/VOMITING Prescribed by: ZULEYMA MORFIN on 05/31/19650 Oseltamivir Phosphate 75 Mg Capsule, 75 MG PO BID Prescribed by: ZULEYMA MORFIN on 05/31/19650 Ranitidine HCl 150 Mg Tablet, 150 MG PO DAILY, (Reported) Temazepam 30 Mg Capsule, 1 CAP PO UD, (Reported) Tramadol HCl 50 Mg Tablet, 50 MG PO BID PRN for PAIN-MILD TO MODERATE, (Reported) Patient Home Medication List Home Medication List Reviewed: Yes Review of Systems Review of Systems Constitutional: see HPI Eyes: No Symptoms Reported; Denies Blindness, Denies Blurred Vision, Denies Decreased Acuity, Denies Photophobia Ears, Nose, Mouth, Throat: no symptoms reported Respiratory: no symptoms reported Cardiovascular: no symptoms reported Gastrointestinal: no symptoms reported Genitourinary: no symptoms reported Musculoskeletal: no symptoms reported Skin: no symptoms reported Psychiatric/Neurological: Headache, Paresthesia (Right hand, bilateral facial paresthesia "numbness", bilateral feet paresthesia); Denies Tingling, Denies Tremors, Denies Weakness Past Kgpixsj-Pcgkwl-Vgphix Hx Patient Social History Alcohol Beverage of Choice: Beer Type Used: Cigarettes Recent Hopitalizations: No Immunizations Up To Date PED Vaccines UTD: Yes Date of Pneumonia Vaccine: July 30, 2005 Date of Influenza Vaccine: Jan 09, 2016 Seasonal Allergies Seasonal Allergies: Yes Past Medical History Surgeries: Yes (C-SECT.X2) Section, Gallbladder, Hysterectomy, Thyroidectomy Respiratory: No Cardiac: Yes Hypertension, Palpitations Neurological: Yes Headaches /Migraines Reproductive Disorders: Yes (CPP, DUB, ENDOMETRIOSIS) Female Reproductive Disorders: Menstrual Problems, Endometriosis, Ovarian Cyst Sexually Transmitted Disease: No HIV/AIDS: No Gastrointestinal: Yes Gastroesophageal Reflux, Chronic Diarrhea, Irritable Bowel Musculoskeletal: Yes Arthritis, Chronic Back Pain Endocrine: Yes Hypothyroidsim Loss of Vision: Bilateral Cancer: Yes Skin Psychosocial: Yes Anxiety, Depression Integumentary: No Blood Disorders: No Adverse Reaction/Blood Tranf: No Physical Exam Vital Signs Vital Signs - First Documented 04/21/20 09:25 Temp 36.9 Pulse 48 Resp 18 B/P (MAP) 120/68 (85) Pulse Ox 97 O2 Delivery Room Air Capillary Refill : Height, Weight, BMI Height: 5'8.00" Weight: 165lbs. 5.0oz. 74.235060qg; 57.00 BMI Method:Stated General Appearance: WD/WN, no apparent distress HEENT: other (Patient has a right eye lateral gaze palsy, pupils are equal round and reactive to light) Neck: non-tender, full range of motion, supple Cardiovascular: regular rate, rhythm, no murmur Respiratory: lungs clear, normal breath sounds, no respiratory distress, no accessory muscle use Gastrointestinal: non tender, soft Back: normal inspection Extremities: normal range of motion, non-tender, normal inspection, no pedal edema, no calf tenderness, normal capillary refill Psychiatric: alert, oriented x 3 Crainal Nerves: normal speech, PERRL, abnormal eye position; No facial a symmetry, No facial droop; facial paresthesias (Bilateral facial paresthesias), tongue deviation to R Coordination/Gait: normal finger to nose, other (Normal lzwd-bn-qosk bilaterally) Motor/Sensory: no motor deficit, no sensory deficit Skin: normal color, warm/dry Progress/Results/Core Measures Results/Orders Lab Results Laboratory Tests Test 04/21/20 09:05 Range/Units White Blood Count 9.9 4.3-11.0 10^3/uL Red Blood Count 3.99 3.80-5.11 10^6/uL Hemoglobin 13.0 11.5-16.0 g/dL Hematocrit 39 35-52 % Mean Corpuscular Volume 98 80-99 fL Mean Corpuscular Hemoglobin 33 25-34 pg Mean Corpuscular Hemoglobin Concent 33 32-36 g/dL Red Cell Distribution Width 11.2 10.0-14.5 % Platelet Count 283 130-400 10^3/uL Mean Platelet Volume 11.8 9.0-12.2 fL Immature Granulocyte % (Auto) 0 % Neutrophils (%) (Auto) 68 42-75 % Lymphocytes (%) (Auto) 23 12-44 % Monocytes (%) (Auto) 7 0-12 % Eosinophils (%) (Auto) 1 0-10 % Basophils (%) (Auto) 1 0-10 % Neutrophils # (Auto) 6.7 1.8-7.8 10^3/uL Lymphocytes # (Auto) 2.2 1.0-4.0 10^3/uL Monocytes # (Auto) 0.7 0.0-1.0 10^3/uL Eosinophils # (Auto) 0.1 0.0-0.3 10^3/uL Basophils # (Auto) 0.1 0.0-0.1 10^3/uL Immature Granulocyte # (Auto) 0.0 0.0-0.1 10^3/uL Sodium Level 139 135-145 MMOL/L Potassium Level 4.2 3.6-5.0 MMOL/L Chloride Level 102 98-107 MMOL/L Carbon Dioxide Level 26 21-32 MMOL/L Anion Gap 11 5-14 MMOL/L Blood Urea Nitrogen 9 7-18 MG/DL Creatinine 0.99 0.60-1.30 MG/DL Estimat Glomerular Filtration Rate > 60 BUN/Creatinine Ratio 9 Glucose Level 95 70-105 MG/DL Calcium Level 6.9 L 8.5-10.1 MG/DL Thyroid Stimulating Hormone (TSH) 7.15 H 0.35-4.94 UIU/ML My Orders Orders - WALTER SCOTT MD Basic Metabolic Panel (04/21/20 09:22) Cbc With Automated Diff (04/21/20 09:22) Thyroid Stimulating Hormone (04/21/20 09:22) Ct Head Wo (04/21/20 09:22) Ct Angio Head W (04/21/20 10:45) Iohexol Injection (Omnipaque 350 Mg/Ml 1 (04/21/20 11:00) Received Contrast (Hold Metformin- Contr (04/21/20 11:00) Ns (Ivpb) (Sodium Chloride 0.9% Ivpb Bag (04/21/20 11:00) Ketorolac Injection (Toradol Injection) (04/21/20 12:30) Medications Given in ED Current Medications Medications Dose Ordered Sig/Walter Route Start Time Stop Time Status Last Admin Dose Admin Iohexol 75 ml ONCE ONCE IV 04/21/20 11:00 04/21/20 11:04 DC 04/21/20 11:39 75 ML Ketorolac Tromethamine 15 mg ONCE ONCE IVP 04/21/20 12:30 04/21/20 12:31 DC 04/21/20 12:44 15 MG Sodium Chloride 100 ml ONCE ONCE IV 04/21/20 11:00 04/21/20 11:04 DC 04/21/20 11:39 80 ML Vital Signs/I&O 04/21/20 09:25 Temp 36.9 Pulse 48 Resp 18 B/P (MAP) 120/68 (85) Pulse Ox 97 O2 Delivery Room Air Progress Progress Note : Time: 12:23 Progress Note Case discussed with neurology, Dr. Sylvester. He assisted me with further evaluation of this patient with right lateral gaze palsy. Recommended CTA of the brain. CT of the brain demonstrates no acute process, no evidence of aneurysm or large clot in any major vessel. Will attempt to talk to the patient's primary care physician, Dr. Oglesby to plan further outpatient work- up with an MRI. [address] Oglesby, he is comfortable with the plan of care and will order an outpatient MRI. Patient will be discharged home; she does state that she feels a little bit better. Initial ECG Impression Date: Apr 21, 2020 Initial ECG Impression Time: 09:10 Initial ECG Rate: 89 Initial ECG Rhythm: Normal Sinus Initial ECG Intervals: Normal Initial ECG Impression: Normal Initial ECG Comparisson: No Previous ECG Available Diagnostic Imaging Diagonstic Imaging: CT Plain Films/CT/US/NM/MRI: head Comments [facility] [place], [place] NAME: PIERCE CHAIREZ [facility] REC#: [id number] PT STATUS: REG ER : 1975 PHYSICIAN: WALTER SCOTT MD ADMIT DATE: 04/21/20/ER Draft Date of Exam:04/21/20 CT HEAD WO PROCEDURE: CT head without contrast. TECHNIQUE: Multiple contiguous axial images were obtained through the brain without the use of intravenous contrast. Auto Exposure Controls were utilized during the CT exam to meet ALARA standards for radiation dose reduction. INDICATION: Headache and right eye lateral gaze palsy. FINDINGS: The ventricles and sulci are within normal limits. There is no hydrocephalus or cerebral edema. There is no midline shift or mass effect. There is no intracranial mass, hemorrhage, or extra-axial fluid collection. The visualized paranasal sinuses and mastoid air cells are clear. There are no regional areas of decreased attenuation appreciated to suggest an acute CVA. IMPRESSION: No acute intracranial abnormality. Dictated on workstation # [id number] Dict: 04/21/20 1013 Trans: 04/21/20 1015 [facility] [id number] Interpreted by: DOMINGA BAILEY MD Electronically signed by: [facility] [place] [place] NAME: PIERCE CHAIREZ [facility] REC#: [id number] PT STATUS: REG ER : 1975 PHYSICIAN: WALTER SCOTT MD ADMIT DATE: 04/21/20/ER Draft Date of Exam:04/21/20 CT ANGIO HEAD W INDICATION: Right arm weakness and right eye lateral gaze. TECHNIQUE: Axial imaging through the brain was performed after the administration of intravenous contrast utilizing the CT angiography protocol. Multiplanar, 3D, and MIP reformations were also performed. All CT scans use one or more of the following dose optimizing techniques: automated exposure control, MA and/or KvP adjustment based on patient size and exam type or iterative reconstruction. FINDINGS: Delayed post contrast imaging through the brain is unremarkable. No enhancing lesion is seen. CT angiographic portion of the exam demonstrates the distal internal carotid arteries including the carotid siphons to be unremarkable. The M1 and M2 segments of the middle cerebral arteries appear to be widely patent. No filling defect or thromboembolism is seen. No definite large branch occlusion is identified. Right and left anterior cerebral arteries appear to be patent. The right and left posterior cerebral arteries appear to be patent. The basilar artery is patent. The visualized distal vertebral arteries are patent. IMPRESSION: Unremarkable CT angiogram of the brain. No definite thromboembolism or large branch occlusion is identified. Dictated on workstation # [id number] Dict: 04/21/20 1140 Trans: 04/21/20 1152 [id number] Interpreted by: BETY GARCIA MD Electronically signed by: Departure Impression Primary Impression: Headache Qualified Codes: R51.9 - Headache, unspecified Additional Impressions: Paresthesia Gaze palsy Disposition: HOME, SELF-CARE Condition: Stable Departure-Patient Inst. Decision time for Depature: 13:14 Referrals: BHAVIK OGLESBY MD (PCP/Family) Primary Care Physician Patient Instructions: Paresthesia (DC), Headache, Adult (DC) Add. Discharge Instructions: Continue your home medications as previously prescribed. Follow-up with Dr. Oglesby and an MRI as we talked about. Return to the emergency room if you have any new, concerning or worsening symptoms or any other emergent complaints. Copy Copies To 1: BAHVIK OGLESBY MD, KATHRYN M MD Apr 21, 2020 09:24
[2020-04-21 09:31] LABS: BASOPHILS # (AUTO) 0.1 10^3/uL (0.0-0.1); BASOPHILS % (AUTO) 1 % (0-10); EOSINOPHILS # (AUTO) 0.1 10^3/uL (0.0-0.3); EOSINOPHILS % (AUTO) 1 % (0-10); HEMATOCRIT 39 % (35-52); LYMPHOCYTES # (AUTO) 2.2 10^3/uL (1.0-4.0); LYMPHOCYTES % (AUTO) 23 % (12-44); MEAN CORPUSCULAR HEMOGLOBIN 33 pg (25-34); MEAN CORPUSCULAR HGB CONC 33 g/dL (32-36); MEAN CORPUSCULAR VOLUME 98 fL (80-99); MEAN PLATELET VOLUME 11.8 fL (9.0-12.2); MONOCYTES # (AUTO) 0.7 10^3/uL (0.0-1.0); MONOCYTES % (AUTO) 7 % (0-12); NEUTROPHILS # (AUTO) 6.7 10^3/uL (1.8-7.8); NEUTROPHILS % (AUTO) 68 % (42-75); PLATELET COUNT 283 10^3/uL (130-400); WHITE BLOOD COUNT 9.9 10^3/uL (4.3-11.0)
[2020-04-21 09:35] LABS: CHLORIDE 102 MMOL/L (98-107); POTASSIUM 4.2 MMOL/L (3.6-5.0); SODIUM 139 MMOL/L (135-145)
[2020-04-21 09:37] LABS: CALCIUM 6.9 MG/DL (8.5-10.1); GLUCOSE 95 MG/DL (70-105)
[2020-04-21 09:39] LABS: CARBON DIOXIDE 26 MMOL/L (21-32)
[2020-04-21 09:41] LABS: CREATININE SERUM 0.99 MG/DL (0.60-1.30); GFR ESTIMATED > 60
[2020-04-21 09:42] LABS: BUN/CREATININE RATIO 9
--- NOTE | 2020-04-21 10:15 | Diagnostic Imaging Report ---
PROCEDURE: CT head without contrast. TECHNIQUE: Multiple contiguous axial images were obtained through the brain without the use of intravenous contrast. Auto Exposure Controls were utilized during the CT exam to meet ALARA standards for radiation dose reduction. INDICATION: Headache and right eye lateral gaze palsy. FINDINGS: The ventricles and sulci are within normal limits. There is no hydrocephalus or cerebral edema. There is no midline shift or mass effect. There is no intracranial mass, hemorrhage, or extra-axial fluid collection. The visualized paranasal sinuses and mastoid air cells are clear. There are no regional areas of decreased attenuation appreciated to suggest an acute CVA. IMPRESSION: No acute intracranial abnormality. Dictated by: Dictated on workstation # [id number]
[2020-04-21] MEDS ORDERED: IOHEXOL 350 MG/ML 100 ML (OMNIPAQUE 350) VIAL IV ONE (11:00)
[2020-04-21] MEDS ORDERED: HOLD METFORMIN - RECEIVED CONTRAST 20 ML VIAL IV SCH (11:00)
[2020-04-21] MEDS ORDERED: NS 100 ML (IVPB) BAG IV ONE (11:00)
--- NOTE | 2020-04-21 11:52 | Diagnostic Imaging Report ---
INDICATION: Right arm weakness and right eye lateral gaze. TECHNIQUE: Axial imaging through the brain was performed after the administration of intravenous contrast utilizing the CT angiography protocol. Multiplanar, 3D, and MIP reformations were also performed. All CT scans use one or more of the following dose optimizing techniques: automated exposure control, MA and/or KvP adjustment based on patient size and exam type or iterative reconstruction. FINDINGS: Delayed post contrast imaging through the brain is unremarkable. No enhancing lesion is seen. CT angiographic portion of the exam demonstrates the distal internal carotid arteries including the carotid siphons to be unremarkable. The M1 and M2 segments of the middle cerebral arteries appear to be widely patent. No filling defect or thromboembolism is seen. No definite large branch occlusion is identified. Right and left anterior cerebral arteries appear to be patent. The right and left posterior cerebral arteries appear to be patent. The basilar artery is patent. The visualized distal vertebral arteries are patent. IMPRESSION: Unremarkable CT angiogram of the brain. No definite thromboembolism or large branch occlusion is identified. Dictated by: Dictated on workstation # [id number]
[2020-04-21] MEDS ORDERED: KETOROLAC 30 MG/ML VIAL IVP ONE (12:30)
[2020-04-21 13:52] VITALS: BP 118/78
== END 2020-04-21 13:53 | disposition home or self-care (01) ==
LOC: EDUNIT# 09:01 → ER 09:02
DX: R51.9 Headache, unspecified (principal); R20.2 Paresthesia of skin; H51.0 Palsy (spasm) of conjugate gaze; K21.9 Gastro-esophageal reflux disease without esophagitis; I10 Essential (primary) hypertension; F41.9 Anxiety disorder, unspecified; E03.9 Hypothyroidism, unspecified; G89.29 Other chronic pain; M54.9 Dorsalgia, unspecified; F32.9 Major depressive disorder, single episode, unspecified; Z79.890 Hormone replacement therapy; Z85.828 Personal history of other malignant neoplasm of skin; Z79.891 Long term (current) use of opiate analgesic
CPT/HCPCS: 36415; 70450; 70496; 80048; 84443; 85025; 93005

== ENCOUNTER → 2020-06-09 | Outpatient (CLI) | payer OTHER ==
--- NOTE | 2020-06-09 17:11 | Diagnostic Imaging Report ---
PROCEDURE: MR imaging of the brain without contrast. TECHNIQUE: Multiplanar, multisequence MR imaging of the brain was performed without contrast. INDICATION: Headache. COMPARISON: CT dated April 21, 2020. FINDINGS: No evidence of restricted diffusion to suggest recent infarction. No intracranial hemorrhage. No abnormal signal identified within the brain parenchyma. No intracranial mass, mass effect, midline shift, herniation, hydrocephalus, or extra-axial fluid collection. The orbits are unremarkable. The paranasal sinuses are clear. Midline structures are unremarkable. The calvarium and extracalvarial soft tissues are unremarkable. The most superior aspect of the right vertebral artery flow void appears isointense as opposed to hypointense. Otherwise, vascular flow voids of the skull base are unremarkable. IMPRESSION: The most superior aspect of the right vertebral artery flow void is isointense. Although technically this could relate to slow flow or occlusion, this is favored to simply relate to mild tortuosity. This could be confirmed with a CTA of the head as clinically indicated. Of note, this region was patent on recent CTA of the head on April 21, 2020. Otherwise, unremarkable examination. Dictated by: Dictated on workstation # [id number]
== END ==
LOC: RAD 16:15
DX: R51.9 Headache, unspecified (principal)
CPT/HCPCS: 70551

== ENCOUNTER 2020-07-14 11:41 | Outpatient (RCR) | payer OTHER ==
[~2020-07-14] VITALS: Ht 172.7 cm; Wt 83.1 kg
[2020-07-14] MEDS ORDERED: SUCR1TAB PO (12:14)
[2020-07-14] MEDS ORDERED: ALPR0.254 PO (12:14)
[2020-07-14] MEDS ORDERED: CITA40TA11 PO (12:14)
[2020-07-14] MEDS ORDERED: TEMA30CA PO (12:14)
[2020-07-14] MEDS ORDERED: OMEP40CA27 PO (12:14)
[2020-07-14] MEDS ORDERED: LISI20TA26 PO (12:14)
[2020-07-14] MEDS ORDERED: MELO10CA3 PO (12:14)
[2020-07-14] MEDS ORDERED: HYDR-3817 PO (12:14)
[2020-07-14] MEDS ORDERED: LEVO200T6 PO (12:14)
[2020-07-14] MEDS ORDERED: FAMO20TA3 PO (12:14)
== END 2020-07-14 12:54 | disposition home or self-care (01) ==
LOC: PREOP 11:41
PROVIDERS: ATTEND Surgery
DX: Z01.818 Encounter for other preprocedural examination (principal)

== ENCOUNTER 2020-07-22 10:06 | Day surgery (SDC) | payer OTHER ==
[~2020-07-22] VITALS: Ht 172.7 cm; Wt 83.1 kg
[~2020-07-22 10:06] MED LIST changes: +ALPR0.254 PO; +CITA40TA11 PO; +FAMO20TA3 PO; +HYDR-3817 PO; +LEVO200T6 PO; +LISI20TA26 PO; +MELO10CA3 PO; +SUCR1TAB PO
[2020-07-22 10:15] VITALS: BP 129/79
[2020-07-22] MEDS ORDERED: LACTATED RINGERS 1,000 ML IV ONE (10:16)
[2020-07-22] MEDS ORDERED: PROPOFOL INJECTION 50 ML IV ONE (10:19)
[2020-07-22] MEDS ORDERED: MIDAZOLAM 2 MG/2 ML (VERSED) VIAL ONE ×2 (10:20→10:54)
[2020-07-22] MEDS ORDERED: HURRICAINE EXT TUBE (BENZOCAINE) XX PRN (10:30)
[2020-07-22] MEDS ORDERED: LIDOCAINE JELLY 2% 6 ML SYRINGE MM PRN (10:30)
[2020-07-22] MEDS ORDERED: LACTATED RINGERS 1,000 ML IV PRN (10:30)
[2020-07-22] MEDS ORDERED: LIDOCAINE JELLY 2% 6 ML SYRINGE ONE (10:35)
[2020-07-22] MEDS ORDERED: HURRICAINE EXT TUBE (BENZOCAINE) ONE (10:35)
[2020-07-22] MEDS ORDERED: LIDOCAINE PF 2% 5 ML (XYLOCAINE) VIAL ONE (10:54)
--- NOTE | 2020-07-22 10:58 | Progress Note-Pre Operative ---
Pre-Operative Progress Note H&P Reviewed The H&P was reviewed, patient examined and no changes noted. Date Seen by Provider: Jul 22, 2020 Time Seen by Provider: 11:00 Date H&P Reviewed: Jul 22, 2020 Time H&P Reviewed: 11:00 Pre-Operative Diagnosis: MANDA CHURCH MD Jul 22, 2020 10:58
[2020-07-22] MEDS ORDERED: PANT40TA2 PO (10:59)
[2020-07-22] MEDS ORDERED: morphine INJ 10 MG/ML 1ML (SYR OR VIAL) IVP PRN ×2 (11:00)
[2020-07-22] MEDS ORDERED: ONDANSETRON 4 MG/2 ML (SDV) Z0FRAN IVP PRN (11:00)
[2020-07-22] MEDS ORDERED: HYDROcodone/APAP 5 MG/325 MG (LORTAB) TAB PO PRN (11:00)
[2020-07-22] MEDS ORDERED: ACETAMINOPHEN 325 MG TABLET PO PRN (11:00)
--- NOTE | 2020-07-22 11:00 | Discharge Inst-Surgical ---
D/C Lap Instructions-KIDO New, Converted, or Re-Newed RX: RX on Chart Follow Up Activity as tolerated High Fiber Diet 25g or more per day Avoid Alcohol, Caffeine, Spicy [place] and Acid foods. Drink 64 fluid oz or more of fluids per day. Symptoms to Report: Fever over 101 degree F, Nausea/Vomiting If any problems/questions: Contact your physician or go to Emergency Room MANDA SANCHEZ MD Jul 22, 2020 11:00
[2020-07-22 11:23] VITALS: BP 105/68
[2020-07-22 11:28] VITALS: BP 100/58
[2020-07-22 11:35] VITALS: BP 100/58
[2020-07-22 12:00] VITALS: BP 102/65
[2020-07-22 12:05] VITALS: BP 102/65
--- NOTE | 2020-07-22 12:55 | Anesthesia-General Post-Op ---
MAC Patient Condition Mental Status/LOC: Same as Preop Cardiovascular: Satisfactory Nausea/Vomiting: Absent Respiratory: Satisfactory Pain: Controlled Complications: Absent Post Op Complications Complications None Follow Up Care/Instructions Patient Instructions None needed. Anesthesiology Discharge Order Discharge Order Patient is doing well, no complaints, stable vital signs, no apparent adverse anesthesia problems. No complications reported per nursing. RAVINDRA MAN CRNA Jul 22, 2020 12:55
--- NOTE | 2020-07-22 17:57 | OPERATIVE REPORT ---
DATE OF SERVICE: 07/22/2020 ATTENDING PRIMARY CARE PHYSICIAN: Milton Camilo MD PREOPERATIVE DIAGNOSIS: Gastroesophageal reflux disease. POSTOPERATIVE DIAGNOSES: Reflux esophagitis stage II, moderate size hiatal hernia approximately 2.5 to 3 cm in size, mild to moderate gastritis. No distal obstructions. PROCEDURE: EGD with biopsy. SURGEON: Manda Sanchez MD ANESTHESIA: Monitored anesthesia care. ESTIMATED BLOOD LOSS: Minimal. FINDINGS: Same as postoperative diagnoses. DISPOSITION: The patient tolerated the procedure well. INDICATIONS: The patient is a 44-year-old female who has had a history of gastroesophageal reflux disease. She states that she has had this for quite some time and has been taking different acid reduction medications that have become ineffective over time. She has taken omeprazole, famotidine as well as a combination of both as well as Carafate; however, states that she does have epigastric burning sensation as well as crampy pain. She does not report any hematemesis, no coffee ground emesis as well as no recent inadvertent weight loss. DESCRIPTION OF PROCEDURE: The patient was brought to the endoscopy suite, laid in the left lateral decubitus position. After adequate IV pain and sedative medications and monitored anesthesia care, the mouthpiece was applied. The endoscope was placed in the mouth, visualizing the pharynx and hypopharyngeal region. Vocal cords, epiglottis and vallecula identified and appeared to be normal. The endoscope was then gently intubated into the esophageal opening and esophagus insufflated. The endoscope was then advanced through the first, second and third portion of esophagus at the level of the GE junction, reflux esophagitis stage II identified. There were no ulcers or strictures identified in this region. The GE junction was also intrathoracic consistent with a hiatal hernia. The endoscope was then advanced in the stomach and endoscope retroflexed, visualizing a moderate size hiatal hernia approximately 2.5 to 3 cm in size. This appeared to be a type 1 sliding hiatal hernia. There was a mild to moderate gastritis. No formal ulcerations, polyps, or any neoplasms. A biopsy was taken of the antrum to rule out H. pylori with visualization of good hemostasis. The endoscope was then advanced to the pylorus and the first and second portion of the duodenum with no distal obstructions or any ulcerations. Then, the endoscope was then slowly withdrawn while taking a second look and suctioning of residual air with no additional findings. The patient tolerated the procedure well. We will have her continue with medical management with the necessary lifestyle and diet accommodation including small and more frequent meals, avoidance of eating at night as well as head elevation while lying supine. She also needs to avoid smoking if she does do this as well as alcohol caffeinated beverages, spicy, greasy and acidic foods. We will also proceed with a trial of medical management with discontinuation of the famotidine and have her continue with omeprazole 40 mg daily and then also add Protonix 40 mg daily. Any modality for regularly scheduled diet and exercise and weight loss and maintenance also would be beneficial. If she continues with maximal medical therapy; however, continued to be symptomatic, she may be a candidate for an antireflux procedure as well as a hiatal hernia repair; however, we would proceed with an esophageal manometry study to rule out esophageal dysmotility disorder before proceeding with the procedure. Job ID: [id number] DocumentID: [id number] Dictated Date: 07/22/2020 11:21:14 Generalist Date: 07/22/2020 17:56:52 Dictated By: MANDA SANCHEZ MD
== END 2020-07-22 12:05 | disposition home or self-care (01) ==
LOC: ENDO 10:06
PROVIDERS: ATTEND Surgery
DX: K29.50 Unspecified chronic gastritis without bleeding (principal); K21.00 Gastro-esophageal reflux disease with esophagitis, without bleeding; K44.9 Diaphragmatic hernia without obstruction or gangrene; I10 Essential (primary) hypertension; F41.9 Anxiety disorder, unspecified; G89.29 Other chronic pain; M54.9 Dorsalgia, unspecified; Z79.899 Other long term (current) drug therapy; Z90.710 Acquired absence of both cervix and uterus; Z87.891 Personal history of nicotine dependence; Z80.3 Family history of malignant neoplasm of breast
CPT/HCPCS: 88305

== ENCOUNTER → 2020-10-10 | Outpatient (CLI) | payer OTHER ==
[~2020-10-10] MED LIST changes: -OMEP40CA27 PO; +OMEP40CA6 PO; +PANT40TA2 PO
--- NOTE | 2020-10-10 15:40 | Diagnostic Imaging Report ---
PROCEDURE: MRI left joint lower extremity without contrast. TECHNIQUE: Multiplanar, multisequence non contrast-enhanced MRI of the left lower extremity was accomplished. INDICATION: Left knee pain, instability, "gave out". COMPARISON: 11/19/2006. FINDINGS: No acute fracture is seen in the left knee. Alignment appears normal. There is no significant joint effusion. The articular cartilage in the patellofemoral compartment demonstrates no focal defects. The articular cartilage in the medial and lateral compartments appears to be intact. The coronal STIR sequence demonstrates very low signal overall. The medial meniscus appears diminutive, but no tear is seen. No tear is seen in the lateral meniscus. The anterior and posterior cruciate ligaments are intact. The medial collateral ligament demonstrates no definite tears; however, there does appear to be adjacent edema. The lateral collateral ligamentous complex are intact. The extensor mechanism is intact. Soft tissues about the knee are otherwise unremarkable. IMPRESSION: 1. Diminutive medial meniscus. No definite tear is seen. 2. Grade 1 sprain of the medial collateral ligament. Dictated by: Dictated on workstation # [id number]
== END ==
LOC: RAD 14:00
DX: S83.412A Sprain of medial collateral ligament of left knee, initial encounter (principal); X58.XXXA Exposure to other specified factors, initial encounter
CPT/HCPCS: 73721

== ENCOUNTER 2020-10-31 05:34 | Emergency (ER) | payer OTHER ==
[~2020-10-31] VITALS: Ht 173 cm; Wt 83.9 kg
[2020-10-31] MEDS ORDERED: SUMA100T3 (05:50)
[2020-10-31] MEDS ORDERED: KETOROLAC 30 MG/ML VIAL IVP STA (06:21)
[2020-10-31] MEDS ORDERED: PROMETHAZINE INJ 25 MG/ML (PHENERGAN) AMP IVP STA (06:21)
[2020-10-31] MEDS ORDERED: NS IV 1000 ML 1,000 ML IV STA (06:21)
[2020-10-31] MEDS ORDERED: diphenhydrAMINE 50 MG/ML INJ (BENADRYL) IV STA (06:21)
--- NOTE | 2020-10-31 07:11 | ED Headache ---
General Chief Complaint: Head/Cervical Problems Stated Complaint: SEVERE MIGRAINE Nursing Triage Note: c/o posterior headache x3 days. reports taking imatrex 10/30/20 et. 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 reports similiar to previous headaches. Source: patient Exam Limitations: no limitations History of Present Illness Date Seen by Provider: Oct 31, 2020 Time Seen by Provider: 06:15 Initial Comments Here with report of migraine headache that is posterior and radiates to the front for the last 3 days. She did try an Imitrex yesterday and that did not help. She is also taking [id number] medications and that is not helping. Does have history of migraines and this is a typical presentation. She states that she was trying to go to work this morning but could not because the pain was too bad. Has had nausea but no vomiting. Reports eating less but still eating some. Denies dysuria or diarrhea. Denies fever chills. She is va ccinated for Covid. Timing/Duration: other (3 days) Severity/Quality: moderate, pressure Location: occipital Prior Headaches/Recent Trauma: frequent headaches Modifying Factors: worse with exposure to light; improves with medication Associated Symptoms: No confusion, No fatigue, No fever/chills; nausea/vomiting; No nasal congestion, No sinus infection, No stiff neck, No weakness Allergies and Home Medications Allergies Coded Allergies: No Known Drug Allergies (Unverified , 08/28/16) Home Medications ALPRAZolam 0.25 Mg Tablet, 0.5 MG PO PRN, (Reported) Last Action: Last Taken Edited Citalopram Hydrobromide 40 Mg Tablet, 40 MG PO DAILY, (Reported) Last Action: Last Taken Edited Famotidine 20 Mg Tablet, 40 MG PO DAILY, (Reported) Last Action: Last Taken Edited Hydrocodone/Acetaminophen 1 Each Tablet, 1 EACH PO Q6H PRN for PAIN-MODERATE (5- 7), (Reported) Last Action: Last Taken Edited Levothyroxine Sodium 200 Mcg Tablet, 200 MCG PO DAILY, (Reported) Last Action: Last Taken Edited Lisinopril 20 Mg Tablet, 20 MG PO DAILY, (Reported) Last Action: Last Taken Edited Meloxicam, Submicronized 10 Mg Capsule, 15 MG PO DAILY, (Reported) Last Action: Last Taken Edited Omeprazole 40 Mg Capsule.dr, 40 MG PO DAILY, (Reported) Pantoprazole Sodium 40 Mg Tablet.dr, 40 MG PO DAILY Prescribed by: MANDA SANCHEZ on 07/22/20 1059 Last Action: Last Taken Edited Sucralfate 1 Gm Tablet, 1 GM PO ACHS, (Reported) Last Action: Last Taken Edited Temazepam 30 Mg Capsule, 30 MG PO DAILY, (Reported) Last Action: Last Taken Edited Patient Home Medication List Home Medication List Reviewed: Yes Review of Systems Review of Systems Constitutional: see HPI; No chills, No fever Eyes: See HPI; Denies Blurred Vision Ears, Nose, Mouth, Throat: no symptoms reported Respiratory: No cough, No short of breath Cardiovascular: no symptoms reported Gastrointestinal: No abdominal pain, No diarrhea; nausea; No vomiting Genitourinary: no symptoms reported Musculoskeletal: no symptoms reported Psychiatric/Neurological: See HPI, Headache; Denies Weakness All Other Systems Reviewed Negative Unless Noted: Yes Past Fspbjer-Wamjdn-Mttdst Hx Patient Social History Tobacco Use?: No Smoking Status: Former Smoker Substance use?: No Alcohol Use?: Yes Alcohol Frequency: Rarely Pt feels they are or have been: No Immunizations Up To Date PED Vaccines UTD: Yes First/Initial COVID19 Vaccinat: 04/21 Second COVID19 Vaccination Marc: 05/22 Seasonal Allergies Seasonal Allergies: Yes Past Medical History Surgeries: Yes (C-SECT.[id number]) Section, Gallbladder, Hysterectomy, Thyroidectomy Respiratory: No Cardiac: Yes Hypertension, Palpitations Neurological: Yes Headaches /Migraines Reproductive Disorders: Yes (CPP, DUB, ENDOMETRIOSIS) Female Reproductive Disorders: Menstrual Problems, Endometriosis, Ovarian Cyst Sexually Transmitted Disease: No HIV/AIDS: No Gastrointestinal: Yes Gastroesophageal Reflux, Chronic Diarrhea, Irritable Bowel Musculoskeletal: Yes Arthritis, Chronic Back Pain Endocrine: Yes Hypothyroidsim Loss of Vision: Bilateral Cancer: Yes Skin Psychosocial: Yes Anxiety, Depression Integumentary: No Blood Disorders: No Adverse Reaction/Blood Tranf: No Family Medical History Reviewed Nursing Family Hx Physical Exam Vital Signs Vital Signs - First Documented 10/31/20 05:42 Temp 35.6 Pulse 96 Resp 20 B/P (MAP) 131/75 (93) Pulse Ox 100 O2 Delivery Room Air Capillary Refill : Less Than 3 Seconds Height, Weight, BMI Height: 5'8.00" Weight: 165lbs. 5.0oz. [id number]; 28.00 BMI Method:Stated General Appearance: WD/WN, no apparent distress HEENT: PERRL/EOMI, pharynx normal Neck: full range of motion, supple Cardiovascular: regular rate, rhythm, no murmur Respiratory: lungs clear, normal breath sounds Gastrointestinal: non tender, soft Back: normal inspection, no CVA tenderness, no vertebral tenderness Extremities: non-tender, normal inspection Psychiatric: alert, oriented x 3 Crainal Nerves: normal hearing, normal speech Motor/Sensory: no motor deficit, no sensory deficit Skin: normal color, warm/dry Progress/Results/Core Measures Results/Orders My Orders Orders - TYLER FLETCHER MD Promethazine Injection (Phenergan Injec (10/31/20 06:21) Ns Iv 1000 Ml (Sodium Chloride 0.9%) (10/31/20 06:21) Ed Iv/Invasive Line Start (10/31/20 06:21) Ketorolac Injection (Toradol Injection) (10/31/20 06:21) Diphenhydramine Injection (Benadryl Inje (10/31/20 06:21) Dexamethasone Injection (Decadron Inje (10/31/20 08:15) Fentanyl Inj (Sublimaze Injection) (10/31/20 08:06) Medications Given in ED Current Medications Medications Dose Ordered Sig/Walter Route Start Time Stop Time Status Last Admin Dose Admin Dexamethasone Sodium Phosphate 10 mg ONCE ONCE IV 10/31/20 08:15 10/31/20 08:16 DC 10/31/20 08:33 10 MG Vital Signs/I&O 10/31/20 10/31/20 05:42 06:50 Temp 35.6 35.6 Pulse 96 Resp 20 B/P (MAP) 131/75 (93) Pulse Ox 100 O2 Delivery Room Air Blood Pressure Mean: 93 Progress Progress Note : Progress Note Seen and evaluated. IV, normal saline 1 L bolus, Phenergan 25 mg IV, Benadryl 25 mg IV and Toradol 30 mg IV ordered. Monitor patient. 0809: States a little better but still has a moderate headache. We will go ahead and give second line therapy with Decadron 10 mg IV and fentanyl 75 mcg IV. Monitor patient. 0930: Overall doing better. Discharged home with return precautions. Patient verbalized understanding instructions and agreement with plan. Departure Impression Primary Impression: Migraine Qualified Codes: G43.009 - Migraine without aura, not intractable, without status migrainosus Disposition: 01 HOME, SELF-CARE Condition: Stable Departure-Patient Inst. Decision time for Depature: 09:34 Referrals: BHAVIK OGLESBY MD (PCP/Family) Primary Care Physician Patient Instructions: Migraines (DC) Add. Discharge Instructions: All discharge instructions reviewed with patient and/or family. Voiced understanding. Follow-up with your doctor for referral to neurology. Return for worse pain, fever, vomiting, weakness, breathing problems or other concerns as needed. Continue home medications as previously prescribed. Drink plenty fluids and get plenty of rest. Work/School Note: Work Release Form Date Seen in the Emergency Department: Oct 31, 2020 Return to Work: Nov 01, 2020 Restrictions: No Restrictions TYLER FLETCHER MD Oct 31, 2020 07:10
[2020-10-31] MEDS ORDERED: fentaNYL INJ 100 MCG/2 ML AMP IVP STA (08:06)
[2020-10-31 09:38] VITALS: BP 114/83
== END 2020-10-31 09:38 | disposition home or self-care (01) ==
LOC: EDUNIT# 05:34 → ER 05:35
DX: G43.909 Migraine, unspecified, not intractable, without status migrainosus (principal); I10 Essential (primary) hypertension; K21.9 Gastro-esophageal reflux disease without esophagitis; G89.29 Other chronic pain; M54.9 Dorsalgia, unspecified; E03.9 Hypothyroidism, unspecified; F41.9 Anxiety disorder, unspecified; F32.9 Major depressive disorder, single episode, unspecified; Z87.891 Personal history of nicotine dependence; Z79.899 Other long term (current) drug therapy; Z79.891 Long term (current) use of opiate analgesic; Z79.890 Hormone replacement therapy